=== PATIENT | female | born 1980 | race Two or more races ===

== ENCOUNTER 2021-04-04 17:19 | Emergency (ER) | payer MEDICAID, OTHER ==
[~2021-04-04] VITALS: Ht 160 cm; Wt 68.0 kg
[2021-04-04 20:47] LABS: Basophils # (auto) 0.1 10 ^3/uL (0-0.2); Basophils % (auto) 1.5 % (0.0-2.0); Eosinophils # (auto) 0.1 10 ^3/uL (0-0.8); Eosinophils % (auto) 1.2 % (0.0-7.0); Hematocrit 40.5 % (36.0-46.0); Hemoglobin 13.4 g/dL (12.2-16.2); Lymphocytes % (auto) 31.9 % (10.0-50.0); Mean Corpuscular Hemoglobin 30.2 pg (28.0-32.0); Mean Corpuscular Hgb Conc. 33.1 g/dL (32.0-36.0); Monocytes # (auto) 0.7 10 ^3/uL (0-1.3); Monocytes % (auto) 10.8 % (0.0-12.0); Neutrophils # (auto) 3.4 10 ^3/uL (1.6-8.6); Neutrophils % (auto) 54.6 % (37.0-80.0); Nucleated Red Blood Cells % 0.1 %; Red Blood Cells 4.45 10^6/uL (4.0-5.20); Red Cell Distribution Width 13.7 % (11.8-14.3); White Blood Cell 6.3 10^3/uL (4.4-10.8)
[2021-04-04 21:03] LABS: Albumin 3.5 g/dL (3.4-5.0); Calcium 8.8 mg/dL (8.5-10.1); Potassium 4.4 mmol/L (3.5-5.1)
[2021-04-04 21:17] LABS: BUN/Creatinine Ratio 18.8; Bilirubin, Total 0.3 mg/dL (0.2-1.0); Total Protein 8.1 g/dL (6.4-8.2)
[2021-04-04] MEDS ORDERED: traMADol HCL 50 MG TAB PO ONE (22:15)
[2021-04-04 23:05] VITALS: BP 146/88
== END 2021-04-04 23:08 | disposition home or self-care (01) ==
LOC: ER 17:19
DX: R07.89 Other chest pain (principal); M25.511 Pain in right shoulder
CPT/HCPCS: 36415; 71046; 80053; 84484; 85025; 93005

== ENCOUNTER → 2024-06-09 | Outpatient (CLI) | payer MEDICAID ==
[2024-06-09 10:27] LABS: Basophils # (auto) 0.1 10 ^3/uL (0-0.2); Basophils % (auto) 1.2 % (0.0-2.0); Eosinophils # (auto) 0.1 10 ^3/uL (0-0.8); Eosinophils % (auto) 1.8 % (0.0-7.0); Hematocrit 38.8 % (36.0-46.0); Hemoglobin 12.8 g/dL (12.2-16.2); Lymphocytes % (auto) 39.4 % (10.0-50.0); Mean Corpuscular Hemoglobin 29.8 pg (28.0-32.0); Mean Corpuscular Hgb Conc. 33.1 g/dL (32.0-36.0); Mean Corpuscular Volume 90.2 fL (80.0-100.0); Monocytes # (auto) 0.5 10 ^3/uL (0-1.3); Monocytes % (auto) 6.6 % (0.0-12.0); Neutrophils # (auto) 3.9 10 ^3/uL (1.6-8.6); Platelet Count (auto) 447 10^3/uL (140-450); White Blood Cell 7.6 10^3/uL (4.4-10.8)
[2024-06-09 10:55] LABS: Alanine Aminotransferase 20 U/L (7-40); Alkaline Phosphatase 83 U/L (46-116); Anion Gap 7 (5-15); BUN/Creatinine Ratio 11.2 (10.0-20.0); Blood Urea Nitrogen 10 mg/dL (9-23); Carbon Dioxide 24 mmol/L (20-31); Creatinine, Urine 151.68 mg/dL (30.0-125.0); Glucose 100 mg/dL (74-106); Potassium 4.5 mmol/L (3.5-5.1); Sodium 139 mmol/L (136-145); Triglycerides 119 mg/dL (< 150)
[2024-06-09 10:57] LABS: Albumin 4.7 g/dL (3.2-4.8)
[2024-06-09 11:06] LABS: Aspartate Aminotransferase 13 U/L (13-40); Bilirubin, Total 0.2 mg/dL (0.2-1.0); Chloride 108 mmol/L (98-107); Total Protein 8.2 g/dL (5.7-8.2)
[2024-06-09 11:07] LABS: Cholesterol 243 mg/dL (< 200); HDL Cholesterol 35 mg/dL (40-59); LDL Cholesterol 198 mg/dL (< 100)
== END | disposition home or self-care (01) ==
LOC: LAB 09:55
PROVIDERS: ATTEND Licensed Practical Nurse
DX: Z13.29 Encounter for screening for other suspected endocrine disorder (principal); I10 Essential (primary) hypertension; E55.9 Vitamin D deficiency, unspecified; E78.2 Mixed hyperlipidemia; R73.03 Prediabetes
CPT/HCPCS: 36415; 80053; 80061; 82043; 82306; 82570; 82607; 83036; 84443; 85025

== ENCOUNTER 2025-03-23 08:56 | Outpatient (CLI) | payer MEDICAID | END 2025-03-23 17:00 | disposition home or self-care (01) | LOC: XYW 08:56 | PROVIDERS: ATTEND Licensed Practical Nurse | DX: I10 Essential (primary) hypertension (principal) | CPT/HCPCS: 93306 ==